=== PATIENT | male | born 1985 | race American Indian/Alaskan Native ===

== ENCOUNTER 2021-12-12 14:12 | Emergency (ER) | payer SELFPAY ==
[2021-12-12 15:53] LABS: RBC,Urine < 1.0 /HPF (0.0-6.0); WBC,Urine < 1.0 /HPF (0.0-6.0)
[2021-12-12 15:58] LABS: Color,Urine Colorless (Yellow)
--- NOTE | 2021-12-12 15:58 | XRay Report ---
CHEST 2 VIEWS INDICATION / CLINICAL INFORMATION: chest pain. COMPARISON: None available. FINDINGS: SUPPORT DEVICES: None. HEART / MEDIASTINUM: No significant abnormality. LUNGS / PLEURA: No significant pulmonary or pleural abnormality. No pneumothorax. ADDITIONAL FINDINGS: No significant additional findings. IMPRESSION: 1. No acute findings. Signer Name: Shadi Vail MD Signed: 12/12/2021 3:54 PM Workstation Name: [id number]
[2021-12-12 17:19] LABS: Basophils # (Auto) 0.1 K/mm3 (0.0-0.1); Basophils % (Auto) 1.2 % (0.0-1.8); Eosinophils % (Auto) 0.3 % (0.0-4.3); Hematocrit 41.5 % (35.5-45.6); Hemoglobin 14.2 gm/dl (11.8-15.2); Lymphocytes # (Auto) 2.3 K/mm3 (1.2-5.4); Lymphocytes % (Auto) 32.6 % (13.4-35.0); Mean Corpuscular HGB Conc 34 % (32-34); Mean Corpuscular Volume 92 fl (84-94); Monocytes # (Auto) 0.4 K/mm3 (0.0-0.8); Monocytes % (Auto) 5.4 % (0.0-7.3); Platelet Count 316 K/mm3 (140-440); Red Blood Count 4.53 M/mm3 (3.65-5.03); Red Cell Distribution Width 12.8 % (13.2-15.2)
[2021-12-12 17:31] LABS: Alanine Aminotransferase 54 units/L (7-56); Albumin 5.2 g/dL (3.9-5); BUN/Creatinine Ratio 10; Blood Urea Nitrogen 11 mg/dL (9-20); Calcium 10.1 mg/dL (8.4-10.2); Hemolysis Index 52
--- NOTE | 2021-12-12 18:25 | Emergency Department Report ---
ED General Adult HPI - General Chief complaint: Chest Pain Stated complaint: CHEST PAIN PUI?: No Time Seen by Provider: 12/12/21 17:40 Source: patient Mode of arrival: Ambulatory Limitations: No Limitations - History of Present Illness Initial comments: Information was obtained from the patient. This is a 35-year-old male who d enies past medical history and is not on any medications also denies surgical history. Patient said that he smokes 3 cigarettes/day on average for the past 20 years. Patient endorsed smoking weed as well but denies using cocaine. Patient denies family history of myocardial infarction less than 65 years old. The reason patient came to the ER today is because of left arm tingling sensation that started around 9:00 in the morning. Patient also endorses chest discomfort which patient states is a pressure-like sensation that nothing makes it better nothing makes it worse. Patient denies that the pressure-like radiate anywhere else. States he currently has it. Patient denies any other associated symptoms. Patient denies fever chill night sweat dizziness blurred vision lightheadedness headache tinnitus ear pain runny nose sore throat loss of taste loss of smell palpitation short of breath cough abdominal pain nausea vomiting diarrhea constipation joint pain muscle pain new rash and heat or cold intolerance. Severity scale (0 -10): 0 - Related Data Allergies Allergy/AdvReac Type Severity Reaction Status Date / Time No Known Allergies Allergy Unverified 12/12/21 15:11 ED Review of Systems ROS: Stated complaint: CHEST PAIN Other details as noted in HPI Comment: All other systems reviewed and negative Constitutional: no symptoms reported, see HPI Eyes: as per HPI ENT: as per HPI Respiratory: no symptoms reported, see HPI Cardiovascular: chest pain (pressure like). denies: palpitations, dyspnea on exertion, edema, syncope Endocrine: no symptoms reported, see HPI Gastrointestinal: as per HPI Genitourinary: as per HPI Musculoskeletal: as per HPI Neurological: other (Left arm numbness/tingling sensation.) Psychiatric: as per HPI Hematological/Lymphatic: as per HPI ED Past Medical Hx - Past Medical History Previous Medical History?: No - Surgical History Past Surgical History?: No - Family History Family history: no significant - Social History Smoking Status: Current Every Day Smoker (average 3 cig/day) Substance Use Type: Marijuana ED Physical Exam - General Limitations: No Limitations General appearance: alert, in no apparent distress - Head Head exam: Present: atraumatic, normocephalic, normal inspection - Eye Eye exam: Present: normal appearance, PERRL, EOMI Pupils: Present: normal accommodation - ENT ENT exam: Present: normal exam, mucous membranes moist - Neck Neck exam: Present: normal inspection, full ROM - Respiratory Respiratory exam: Present: normal lung sounds bilaterally - Cardiovascular Cardiovascular Exam: Present: regular rate, normal rhythm, normal heart sounds - GI/Abdominal GI/Abdominal exam: Present: soft - Extremities Exam Extremities exam: Present: normal inspection, full ROM, normal capillary refill - Back Exam Back exam: Present: normal inspection, full ROM - Neurological Exam Neurological exam: Present: alert, oriented X3, CN II-XII intact - Psychiatric Psychiatric exam: Present: normal affect, normal mood - Skin Skin exam: Present: normal color ED Course Vital Signs 12/12/21 15:04 Temperature 98 F Pulse Rate 72 Respiratory 18 Rate Blood Pressure 166/92 [Left] O2 Sat by Pulse 98 Oximetry - Reevaluation(s) Reevaluation #1: 12/12/21 20:29 HEART SCORE OF 2; +1 FOR MODERATE SUSPICIOUS, +1 FOR 1 RISK FACTOR OF SMOKING. DELTA TROPONIN NEGATIVE. INFORMED TO FOLLOW UP WITH PCP WITHIN 3 DAYS FOR FURTHER OUTPATIENT EVALUATION. 12/12/21 20:38 ED Medical Decision Making - Lab Data Result diagrams: 12/12/21 16:46 12/12/21 16:46 Critical care attestation.: If time is entered above; I have spent that time in minutes in the direct care of this critically ill patient, excluding procedure time. ED Disposition Clinical Impression: Non-cardiac chest pain Disposition: HOME / SELF CARE / HOMELESS Is pt being admited?: No Does the pt Need Aspirin: No Condition: Stable Instructions: Nonspecific Chest Pain, Adult Additional Instructions: YOUR WORK UP IN THE EMERGENCY ROOM WAS UNREMARKABLE. MAKE A FOLLOW UP APPOINTMENT WITH YOUR PRIMARY CARE PROVIDER TO BE SEEN WITHIN 3 DAYS FOR FURTHER OUTPATIENT EVALUATION OF YOUR NON-CARDIAC CHEST DISCOMFORT. Forms: Work/School Release Form(ED) Time of Disposition: 20:38
[2021-12-12 20:49] VITALS: BP 151/88
--- NOTE | 2021-12-13 13:23 | Electrocardiograph Report ---
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
== END 2021-12-12 20:49 | disposition home or self-care (01) ==
LOC: ED 14:12
DX: R07.9 Chest pain, unspecified (principal); F17.200 Nicotine dependence, unspecified, uncomplicated; F12.90 Cannabis use, unspecified, uncomplicated
CPT/HCPCS: 36415; 71046; 80053; 81001; 84484; 85025; 93005; 99284